=== PATIENT | female | born 1955 | race Hispanic/Latino ===

== ENCOUNTER 2018-07-17 16:31 | Emergency (ER) | payer OTHER, MEDICARE ==
[2018-07-17 17:14] LABS: APPEARANCE,URINE CLEAR (CLEAR); BILIRUBIN,URINE NEGATIVE (NEGATIVE); COLOR,URINE YELLOW (YELLOW); GLUCOSE, URINE (UA) 250 mg/dL (NEGATIVE); KETONES,URINE 5 mg/dL (NEGATIVE); LEUKOCYTE ESTERASE ,URINE NEGATIVE (NEGATIVE); NITRATE,URINE NEGATIVE (NEGATIVE); OCCULT BLOOD,URINE SMALL (NEGATIVE); PROTEIN,URINE TRACE (NEGATIVE)
[2018-07-17 17:25] LABS: RBC,URINE 0-1 /HPF (0-1); WBC,URINE 0-1 /HPF (0-1)
[2018-07-17 17:25] LABS: INR 0.95 (0.85-1.15); PARTIAL THROMBOPLASTIN TIME 26.3 SEC (26.3-35.5)
[2018-07-17 17:26] LABS: BACTERIA,URINE Rare /HPF (None Seen); SQUAMOUS EPITHELIAL CELL,UR Rare /HPF (0-2)
[2018-07-17 17:27] LABS: CREATININE 0.9 mg/dL (0.5-1.5); POTASSIUM 3.5 mmol/L (3.5-5.1)
[2018-07-17] MEDS ORDERED: KETOROLAC TROMETHAMINE 15MG/ML ONE (17:27)
[2018-07-17] MEDS ORDERED: LIDOCAINE 5% TOPICAL PATCH TP ONE (17:27)
[2018-07-17] MEDS ORDERED: CYCLOBENZAPRINE HCL 10 MG TABLET ONE (17:28)
[2018-07-17 17:31] LABS: BILIRUBIN,TOTAL 0.6 mg/dL (0.2-1.0); TOTAL PROTEIN, SERUM 8.2 g/dL (6.0-8.3)
[2018-07-17 18:08] LABS: BASOPHILS % (AUTO) 0.3 % (0.0-5.0); EOSINOPHILS % (AUTO) 1.5 % (0.0-8.0); HEMATOCRIT 43.3 % (36-48); LYMPHOCYTES % (AUTO) 29.9 % (21.0-51.0); MEAN CORPUSCULAR HEMOGLOBIN 30.6 pg (27.0-33.0); MEAN CORPUSCULAR HGB CONC 34.7 g/dL (32.0-36.0); MEAN CORPUSCULAR VOLUME 88.1 fL (79-99); MONOCYTES % (AUTO) 6.5 % (3.0-13.0); NEUTROPHILS % (AUTO) 61.8 % (40.0-77.0); NUCLEATED RED BLOOD CELLS 0.2 % (0.0-0.19); PLATELET COUNT (AUTO) 336 K/uL (130-400); RED BLOOD CELL COUNT(AUTO) 4.92 MIL/uL (4.00-5.50); RED CELL DISTRIBUTION WIDTH 13.4 % (11.0-15.5); WHITE BLOOD COUNT (AUTO) 7.8 K/uL (4.8-10.8)
== END 2018-07-17 19:29 | disposition home or self-care (01) ==
LOC: EDH 16:31
DX: M62.830 Muscle spasm of back (principal); I10 Essential (primary) hypertension; Z88.2 Allergy status to sulfonamides; Z87.442 Personal history of urinary calculi
CPT/HCPCS: 36415; 74176; 80053; 81001; 82550; 83690; 84484; 85025; 85610; 85730; 96374; 99284; J1885

== ENCOUNTER → 2019-12-21 | Outpatient (CLI) | payer OTHER | END | disposition home or self-care (01) | LOC: RAH 11:04 | PROVIDERS: ATTEND Family Medicine | DX: Z12.31 Encounter for screening mammogram for malignant neoplasm of breast (principal) | CPT/HCPCS: 77067 ==

== ENCOUNTER → 2022-01-27 | Outpatient (CLI) | payer OTHER | END | disposition home or self-care (01) | LOC: RAH 12:42 | PROVIDERS: ATTEND Family Medicine | DX: Z12.31 Encounter for screening mammogram for malignant neoplasm of breast (principal) | CPT/HCPCS: 77067 ==

== ENCOUNTER → 2023-09-15 | Outpatient (CLI) | payer OTHER ==
[~2023-09-15] MED LIST: AMLO-257 PO; LOSA50TA64 PO; MACR100 PO
== END | disposition home or self-care (01) ==
LOC: RAH 13:44
PROVIDERS: ATTEND Family Medicine
DX: M81.0 Age-related osteoporosis without current pathological fracture (principal); M25.511 Pain in right shoulder; Z73.0 Burn-out
CPT/HCPCS: 73030; 77080

== ENCOUNTER → 2024-02-04 | Outpatient (CLI) | payer OTHER | END | disposition home or self-care (01) | LOC: RAH 13:20 | PROVIDERS: ATTEND Family Medicine | DX: Z12.31 Encounter for screening mammogram for malignant neoplasm of breast (principal); N64.89 Other specified disorders of breast; R92.323 Mammographic fibroglandular density, bilateral breasts; R92.30 Dense breasts, unspecified | CPT/HCPCS: 77067 ==

== ENCOUNTER 2024-07-19 05:40 | Day surgery (SDC) | payer OTHER ==
[2024-07-14 12:13] VITALS: BP 153/57; PULSE 54; RESP 18; TEMP 97.5
[2024-07-14 12:23] LABS: BASOPHILS # (AUTO) 0.02 K/uL (0.00-0.20); BASOPHILS % (AUTO) 0.4 % (0.0-5.0); EOSINOPHILS # (AUTO) 0.11 K/uL (0.00-0.70); EOSINOPHILS % (AUTO) 2.1 % (0.0-8.0); HEMATOCRIT 37.4 % (36-48); IMMATURE GRANULOCYTE ABSOLUTE 0.01 K/uL (0-1); LYMPHOCYTES # (AUTO) 1.8 K/uL (1.0-4.8); LYMPHOCYTES % (AUTO) 34.8 % (21.0-51.0); MEAN CORPUSCULAR HEMOGLOBIN 30.4 pg (27.0-33.0); MEAN CORPUSCULAR HGB CONC 34.8 g/dL (32.0-36.0); MEAN CORPUSCULAR VOLUME 87.4 fL (79-99); MONOCYTES # (AUTO) 0.5 K/uL (0.1-1.0); MONOCYTES % (AUTO) 8.8 % (3.0-13.0); NEUTROPHILS # (AUTO) 2.8 K/uL (1.8-7.7); NEUTROPHILS % (AUTO) 53.7 % (40.0-77.0); PLATELET COUNT (AUTO) 220 K/uL (130-400); RED BLOOD CELL COUNT(AUTO) 4.28 MIL/uL (4.00-5.50); RED CELL DISTRIBUTION WIDTH 13.6 % (11.0-15.5); WHITE BLOOD COUNT (AUTO) 5.2 K/uL (4.8-10.8)
[2024-07-14 12:31] LABS: INR 1.01 (0.85-1.15); PROTHROMBIN TIME 10.7 SEC (9.6-11.6)
[2024-07-14 12:32] LABS: PARTIAL THROMBOPLASTIN TIME 25.3 SEC (26.3-35.5)
[2024-07-14 12:49] LABS: CREATININE 0.7 mg/dL (0.5-1.0)
--- NOTE | 2024-07-14 13:39 | EKG ---
[facility] Test Date: 2024-07-14 Test Time: 12:10:52 Pat Name: CRISTIAN LOTT Department: [facility] Room: Gender: F [employer] Teacher: [id number] : 1955 Requested By: BARBARA FOLEY Order Number: [id number] Reading MD: Damian Marsh Measurements Intervals [place] Rate: 52 P: 51 WV: 164 QRS: 7 QRSD: 93 T: 42 QT: 425 QTc: 397 Interpretive Statements Sinus rhythm Compared to ECG 05/24/2022 00:16:22 No significant changes Electronically Signed On 07-17-2024 18:29:46 CDT by Damian Marsh Please click the below link to view image of tracing.
[2024-07-19] VITALS (13 sets, daily range): BP systolic 116–171; BP diastolic 46–69; PULSE 52–61; RESP 12–18; TEMP 97.7–98
[~2024-07-19] VITALS: Ht 142.2 cm; Wt 45.8 kg
[2024-07-19] MEDS: BUPIvacaine/PF 0.25% 30ML VIAL IJ ONE
[2024-07-19] MEDS: LIDOCAINE 1%-EPI 1:100,000 20 ML VIAL ONE
[~2024-07-19 05:40] MED LIST changes: +ALEN70TA80 PO; +ASPI-1443 PO; +CALC-1153 PO; +DORZ10DR19 OU; +LATA2.5D14 OU; -MACR100 PO; +MILK175T2 PO
[2024-07-19] MEDS: ceFAZolin SODIUM 2 GM VIAL ONE (06:24)
[2024-07-19] MEDS: LACTATED RINGERS 1000ML 1,000 ML IV ONE (06:24)
[2024-07-19] MEDS ORDERED: FAMOTIDINE 20MG VIAL IV ONE (06:53)
[2024-07-19] MEDS ORDERED: proPOFol 10 MG/ML 20ML VIAL IV ONE (07:00)
[2024-07-19] MEDS ORDERED: rocuRONium bROMide 10MG/1ML 5ML VL ONE (07:00)
[2024-07-19] MEDS ORDERED: LIDOCAINE PF 100MG/5ML (2%) SYRINGE 5ML ONE (07:00)
[2024-07-19] MEDS ORDERED: FENTanyl CITRate PF 50 MCG/1 ML 2ML VIAL ONE (07:01)
[2024-07-19] MEDS ORDERED: dexaMETHasone SOD PHOSPHATE 10MG/ML 1ML VIAL ONE (07:01)
[2024-07-19] MEDS ORDERED: ketOROlac 30MG VIAL (30MG/ML) ONE (07:02)
[2024-07-19] MEDS ORDERED: ondanSETRON 4MG INJ ONE (07:02)
[2024-07-19] MEDS ORDERED: LIDOCAINE HCL 2% JELLY 5 ML ONE (08:39)
--- NOTE | 2024-07-19 09:55 | NUR ---
Full and complete discharge instructions given to Patient and Family both verbally and in writing. Explained Surgical procedure precautions and follow up. Ambulated to bathroom and voided large amount. All questions answered. PIV removed with catheter tip intact. Home with Family W/C to POV.
--- NOTE | 2024-07-21 18:24 | OP ---
Operative Note: DATE OF PROCEDURE: 07/19/24 SURGEON: BARBARA FOLEY MD HOUSE COORDINATOR: None ANESTHESIA: General ANESTHESIOLOGIST/STATION HELPER: STATION HELPER PREOPERATIVE DIAGNOSIS: Anal condyloma POSTOPERATIVE DIAGNOSIS: Anal condyloma PROCEDURE: Excisional fulguration of anal condyloma, simple Anal canal biopsy ESTIMATED BLOOD LOSS: Minimal DESCRIPTION OF PROCEDURE: After informed consent was obtained, the patient was taken to the operating room and laid in the supine position. Once general anesthesia with an LMA was obtained, the patient was carefully placed into lithotomy position. Next the perianal area was prepped and draped in the usual sterile fashion. A time-out was performed to confirm the correct patient procedure. Next a bilateral pudendal block was performed followed by inspection of the perianal area. There was no condylomatous lesions apparent in the anal margin or anal verge. We then insert a Fansler anoscope in the anal canal was inspected. There was a well-defined condylomatous lesion just to the right of the posterior midline. We obtained a biopsy of this area. We then completed the excisional fulguration of this condylomatous isolated lesion with electrocautery. There were no other lesions or condyloma appreciated within the anal canal. Once this was done we then ensured hemostasis. Additional local anesthetic was injected for postoperative pain control. A gauze dressing was applied. The patient tolerated the procedure well was taken to the recovery room stable condition. Specimen: Anal condyloma Counts reported as correct x2 by nursing staff Complications none BARBARA FOLEY MD Jul 21, 2024 18:24
== END 2024-07-19 10:00 | disposition home or self-care (01) ==
LOC: DAH 05:40
PROVIDERS: ATTEND Surgery
DX: A63.0 Anogenital (venereal) warts (principal); R85.612 Low grade squamous intraepithelial lesion on cytologic smear of anus (LGSIL); K21.9 Gastro-esophageal reflux disease without esophagitis; K76.0 Fatty (change of) liver, not elsewhere classified; K80.20 Calculus of gallbladder without cholecystitis without obstruction; K57.90 Diverticulosis of intestine, part unspecified, without perforation or abscess without bleeding; K44.9 Diaphragmatic hernia without obstruction or gangrene; K59.09 Other constipation; E66.9 Obesity, unspecified; I10 Essential (primary) hypertension; Z98.890 Other specified postprocedural states; Z88.8 Allergy status to other drugs, medicaments and biological substances; Z68.22 Body mass index [BMI] 22.0-22.9, adult; Z86.0100 Personal history of colon polyps, unspecified; Z79.899 Other long term (current) drug therapy; Z79.82 Long term (current) use of aspirin
CPT/HCPCS: 80048; 85025; 85610; 85730; 36415; 93005; 46910; 82948; 88305; A6260; J1885; A4663; A4649 ×2; A4606; J7120; J3490 ×3; J3010; J1100; J0665; J2003; J2704; J2405; J0690; A4930; A4215; A4223; A4222; A4221

== ENCOUNTER 2025-03-19 15:03 | Emergency (ER) | payer OTHER ==
[~2025-03-19] VITALS: Ht 142.2 cm; Wt 44.6 kg
[~2025-03-19 15:03] MED LIST changes: -LATA2.5D14 OU; +LATA2.5D7 OU
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
--- NOTE | 2025-03-19 15:59 | NUR ---
PENDING GFR RESULTS FOR CT EXAM.
[2025-03-19] MEDS ORDERED: IOHEXOL-350 75 ML VIAL IV ONE (16:03)
[2025-03-19 16:19] LABS: CREATININE 1.0 mg/dL (0.5-1.0); GLOMERULAR FILTR. RATE CALC 60.0 mL/min (>90); GLUCOSE,RANDOM 154.0 mg/dL (70-105); SODIUM SERUM 139.0 mmol/L (136-145); UREA NITROGEN, BLOOD 22.0 mg/dL (7-18)
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
--- NOTE | 2025-03-19 18:10 | HMCIMG ---
EXAM: CT Abdomen with IV contrast CLINICAL HISTORY: PAIN TECHNIQUE: Axial computed tomography images of the abdomen and pelvis with intravenous contrast. COMPARISON: None provided. FINDINGS: LUNG BASES: The lung bases appear clear. No pleural effusions are seen. LIVER: Few hepatic cysts in the right lobe of the liver, largest measuring 2 x 2 cm in the segment of the liver. GALLBLADDER AND BILE DUCTS: Multiple intraluminal hyperdense foci layering along the dependent wall of the gallbladder, largest measuring 3 mm. Normal gallbladder wall thickness. No biliary ductal dilatation is evident. PANCREAS: Unremarkable. SPLEEN: Calcific foci in the inferior pole of the spleen. Consistent with chronic granulomatous etiology. ADRENAL GLANDS: Unremarkable. KIDNEYS, URETERS, AND BLADDER: Multiple cortical renal cysts in bilateral kidneys, largest measuring 1.2 x 1.2 cm in the lower pole of right kidney and measuring 1.1 x 1.1 cm in the upper pole of left kidney. There is no hydronephrosis or hydroureter. No urinary calculi are seen. STOMACH AND BOWEL: Unremarkable appearance of the stomach and bowel. No evidence of bowel obstruction. No evidence suggesting enteritis or colitis. APPENDIX: No evidence of acute appendicitis on CT examination. PERITONEUM: No free fluid. No free air. LYMPH NODES: No lymphadenopathy is evident. VASCULATURE: No evidence of abdominal aortic aneurysm. BONES: No aggressive appearing osseous lesion. No acute osseous pathology evident. Mild grade I anterolisthesis of L4 over L5 vertebra. Umbilical hernia measuring 0.7 cm with herniation of omental fat. IMPRESSION: No acute intra-abdominal or pelvic abnormality. Cholelithiasis with no evidence of acute cholecystitis. Suggested ultrasound or MRI/MRCP correlation, if clinically indicated. Hepatic cysts. Bilateral cortical renal cysts. Bosniak category I. Umbilical hernia. Calcific foci in the inferior pole of the spleen. Consistent with chronic granulomatous etiology. /[place]
[2025-03-19 18:21] VITALS: BP 167/48; PULSE 70; RESP 18; TEMP 98.4; O2SAT 98
[2025-03-19] MEDS ORDERED: METH-811 PO (18:21)
== END 2025-03-19 18:28 | disposition home or self-care (01) ==
LOC: EDH 15:03
DX: M62.838 Other muscle spasm (principal); M25.511 Pain in right shoulder; R07.89 Other chest pain; I10 Essential (primary) hypertension; Z88.2 Allergy status to sulfonamides; Z88.1 Allergy status to other antibiotic agents; Z79.82 Long term (current) use of aspirin; Z79.899 Other long term (current) drug therapy; Z90.710 Acquired absence of both cervix and uterus; R10.30 Lower abdominal pain, unspecified; Z88.8 Allergy status to other drugs, medicaments and biological substances; V43.52XA Car driver injured in collision with other type car in traffic accident, initial encounter; Y93.I9 Activity, other involving external motion; Y92.410 Unspecified street and highway as the place of occurrence of the external cause; Y99.8 Other external cause status
CPT/HCPCS: 99285; 74160; 71045; 80048; 36415; 72040; 73030; Q9967

== ENCOUNTER → 2025-03-29 | Outpatient (CLI) | payer OTHER ==
[~2025-03-29] MED LIST changes: +METH-811 PO
--- NOTE | 2025-04-03 08:35 | HMCIMG ---
BILATERAL BREAST ULTRASOUND: CLINICAL HISTORY: Follow-up for mammogram from 02/03/2025 due to nodular dense breasts. Finding: Real-time examination of the both breasts demonstrates heterogeneous echotexture throughout both the breasts without evidence of focal solid or cystic masses. There are benign appearing axillary lymph node. IMPRESSION: Moderately heterogeneously nodular dense breast with no lesion seen.. I would recommend annual mammography with tomography with bilateral breast sonogram. FINAL ASSESSMENT: ACR: BI-RAD- 2. Benign Finding.
== END | disposition home or self-care (01) ==
LOC: RAH 14:56
PROVIDERS: ATTEND Family Medicine
DX: R92.333 Mammographic heterogeneous density, bilateral breasts (principal); R92.8 Other abnormal and inconclusive findings on diagnostic imaging of breast